=== PATIENT | male | born 1995 | race Caucasian/White ===

== ENCOUNTER 2016-12-14 21:24 | Emergency (ER) | payer OTHER ==
--- NOTE | 2016-12-15 00:55 | ED NURSING NOTES ---
Clinical Report - [facility] [address] [place] [address] 12/14/2016 21:29 [id number] Triage time 22:25. Acuity: LEVEL 4. Chief Complaint: INJURY TO RIGHT HAND. INJURY TO THE RIGHT THUMB (lac). --22:28 Da Tolentino R.N. 22:24 12/14/16. BP: 138/90. HR: 91. RR: 15. O2 saturation: 98%. Temp: 98.1 F. Pain level now 12/05. --22:28 Da Tolentino R.N. Weight: 70.3 kg stated. Height/Length: 64 inches Per Patient. BMI: 26.6. --22:27 Da Tolentino R.N. Medications None. --22:27 Da Tolentino R.N. Medication/allergy information source: the patient. --22:28 Da Tolentino R.N. Allergies No Known Drug Allergy. --22:27 Da Tolentino R.N. History Arrived by private vehicle. Historian: patient. Unaccompanied. Primary physician (Dr Quintana). This occurred just prior to arrival. He sustained a laceration (broken plate). ( Pt came in with a lac on the right thumb on a broken plate. Dressing is on the right thumb with some blood noted on the dressing, but not actively bleeding. pt has full sensation in the right thumb. Warm to the touch.). 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 PAST MEDICAL HX: Tetanus status: unknown. SOCIAL HX: Never smoker. No alcohol use or drug use. --22:28 Da Tolentino R.N. PROBLEMS: no known problems. ADDITIONAL SURGERIES: no known surgeries. Interventions ID band on patient. To treatment room. --22:28 Da Tolentino R.N. PHYSICAL ASSESSMENT GENERAL / NEURO / PSYCH: Oriented X 4. Alert. Appears in no acute distress. EXTREMITIES: Capillary refill is less than 2 seconds in the extremities. Extremity pulses are within normal limits. Extremities exhibit normal ROM. Neuro-vascular status intact to the extremity. Right thumb: superficial 1.0 cm laceration with controlled bleeding. Limited movement secondary to pain. SKIN: Skin intact. Skin is warm and dry. --22:29 Da Tolentino R.N. NURSING PROGRESS NOTES Two patient identifiers checked. Call light placed in reach. Side rails up x 1. Bed placed in lowest position. Brakes of bed on. --22:29 Da Tolentino R.N. 23:48 12/14/2016 TDAP IM 0.5 mL given. (Lot#: [id number], expiration date: 07/05/2018, Dinkey Skinner: sanofi pasteur). Given in the right deltoid. Allergies verified and confirmed 5 rights. Vaccine information statement provided to the patient. --23:48 Da Tolentino R.N. ( MD is present in the room. MD is using lido on the right thumb). --23:51 Da Tolentino R.N. 00:58 12/15/2016 Lidocaine Injection Injectable 2 % given. (given locally by ). --00:58 Mary Jane Church R.N. DISPOSITION / DISCHARGE Departure time: 0105. Condition at departure: improved. ( wound was cleaned and dressing placed). No learning barriers present. Discharge instructions provided and reviewed with the patient. Work note given (1 day). Patient verbalized understanding. Written instructions provided in Uzbek. ( 7 days to remove stitches). The patient was discharged by the physician. He was discharged home and unaccompanied at time of discharge. He left the Emergency Department ambulatory and via private vehicle. Patient driving. --01:07 Da Tolentino R.N. 01:06 12/15/16. BP: 129/65. HR: 79. RR: 15. O2 saturation: 100%. Pain level now 0/10. --01:07 Da Tolentino R.N. Locked/Released at 12/15/2016 1:08 by Da Tolentino R.N.
--- NOTE | 2016-12-15 00:55 | ED CLINICAL REPORT ---
Clinical Report - Physicians/Mid Levels [facility] [address] [place] [address] 12/14/2016 21:29 [id number] Time Seen: 23:09; initial patient contact. Arrived- By private vehicle. Historian- patient. HISTORY OF PRESENT ILLNESS Chief Complaint: Injury to the right thumb. The injury happened just prior to arrival. Occurred at work. The patient sustained a laceration from broken glass. Patient is experiencing mild pain. Patient denies injury to the head or neck. REVIEW OF SYSTEMS The patient sustained a laceration. No swelling, tingling, numbness, weakness or foreign body. All systems otherwise negative, except as recorded above. PAST HISTORY Negative. The patient's dominant hand is the right. Last tetanus immunization was more than 5 years ago. Problems: no known problems. Surgeries: No history of previous surgery. Additional Surgeries: no known surgeries. Medications: None. Allergies: No Known Drug Allergy. SOCIAL HISTORY Never smoker. No alcohol use or drug use. ADDITIONAL NOTES The nursing notes have been reviewed with agreement regarding the chief complaint, PMH and patient medications and allergies. PHYSICAL EXAM Vital Signs: 12/14/2016 22:24 BP: 138/90. HR: 91. RR: 15. O2 saturation: 98%. Temp: 98.1 F. Have been reviewed. Hypertensive. Heart rate normal. Respiratory rate normal. Temperature normal. Oxygen saturation normal. Appearance: Alert. Oriented X3. No acute distress. Skin: Single small, deep, linear 1.0 cm laceration. SEE LACERATION PROCEDURE NOTE. Extremities: Right thumb: mild tenderness and deep 1.0 cm laceration. Neurovascular intact distally. No swelling. No limitation in movement. Hand and wrist exam otherwise negative. Extremities otherwise negative. Neuro, Vascular and Tendons: Vascular status intact. Sensation intact. Motor intact. Neuro: Oriented X 3. No motor deficit. No sensory deficit. PROGRESS AND PROCEDURES Digital Nerve Block - Finger: Time: 00:53. Per protocol, time-out completed immediately before the procedure. Digital nerve block performed on the right thumb. Web space, dorsal and volar approach utilized. Landmarks identified. Skin prepped. Total volume of 4 mL 1% Lidocaine infiltrated via two punctures using a 27-gauge needle. Patient cooperative during procedure. No complications encountered. Good anesthesia achieved. Laceration Repair: Time: 00:53. Location: right thumb. Per protocol, time-out completed immediately before the procedure. Length: 1 cm. Complexity: simple (sutured). Wound depth/shape- subcutaneous and linear. Wound is clean. Distal neuro/vascular/tendon status normal. Anesthesia provided by digital block using 1% lidocaine (4 mL). Prepped with Shur-Clens. Wound explored, cleansed and examined to the base in bloodless field extensively with normal saline. Closure of skin: 4-0 Prolene (3 sutures). Post-procedure: he is stable and there are no complications. Bleeding is controlled and neuro-vascular status is intact distal to the wound. Tetanus immunization given. Estimated blood loss: 2 mL. Disposition: Discharged home in good and improved condition. Condition: good. CLINICAL IMPRESSION Single deep laceration to the right thumb.No foreign body present or right fingernail injury. INSTRUCTIONS Protect wound and keep wound area clean. Change dressing twice daily. You may wash wounds briefly, then dry. Apply bacitracin twice daily. Your Current Medications: CONTINUE TAKING THE FOLLOWING MEDICATIONS: None*. Follow-up: Follow up with your doctor in about seven days for suture removal. Call for an appointment. Screening today revealed the patient's blood pressure to be in the hypertensive range. The patient should follow up with a primary care provider for blood pressure management. (Electronically signed by Ascencion Welsh Dr. 12/15/2016 0:57)
--- NOTE | 2016-12-15 00:55 | ED ORDER SUMMARY ---
..... Patient: ZOË LOPEZ OrderSheet [facility] VisitID: [id number] [place] [address] 21y, M Registration Date/Time: 12/14/2016 ORDER SHEET Weight: 70.3 kg (stated) Allergies: No Known Drug Allergy GENERAL ORDERS: Suture Set-up: (00:57 12/15/2016 Wandy Damon) (0:58 EInderbitzen R.N.) MEDICATION ORDERS: Tdap IM 0.5 mL (NOW, per protocol) (23:40 12/14/2016 Wandy Damon) (23:48 TLewis R.N.) Lidocaine Injection 2 % (soln) (NOW) (00:57 12/15/2016 Wandy Damon) (0:58 EInderbitzen R.N.) IV FLUIDS: ORDER SHEET NOTES: [Electronically signed by Ascencion Welsh Dr. (00:57 12/15/2016)] [Electronically signed by Da Tolentino R.N. (01:08 12/15/2016)] [Electronically locked/signed by Da Tolentino R.N. (01:12/15/2016)]
--- NOTE | 2016-12-15 00:55 | ED CLINICAL REPORT ---
Clinical Report - Physicians/Mid Levels [facility] [address] [place] [address] 12/14/2016 21:29 [id number] Time Seen: 23:09; initial patient contact. Arrived- By private vehicle. Historian- patient. HISTORY OF PRESENT ILLNESS Chief Complaint: Injury to the right thumb. The injury happened just prior to arrival. Occurred at work. The patient sustained a laceration from broken glass. Patient is experiencing mild pain. Patient denies injury to the head or neck. REVIEW OF SYSTEMS The patient sustained a laceration. No swelling, tingling, numbness, weakness or foreign body. All systems otherwise negative, except as recorded above. PAST HISTORY Negative. The patient's dominant hand is the right. Last tetanus immunization was more than 5 years ago. Problems: no known problems. Surgeries: No history of previous surgery. Additional Surgeries: no known surgeries. Medications: None. Allergies: No Known Drug Allergy. SOCIAL HISTORY Never smoker. No alcohol use or drug use. ADDITIONAL NOTES The nursing notes have been reviewed with agreement regarding the chief complaint, PMH and patient medications and allergies. PHYSICAL EXAM Vital Signs: 12/14/2016 22:24 BP: 138/90. HR: 91. RR: 15. O2 saturation: 98%. Temp: 98.1 F. Have been reviewed. Hypertensive. Heart rate normal. Respiratory rate normal. Temperature normal. Oxygen saturation normal. Appearance: Alert. Oriented X3. No acute distress. Skin: Single small, deep, linear 1.0 cm laceration. SEE LACERATION PROCEDURE NOTE. Extremities: Right thumb: mild tenderness and deep 1.0 cm laceration. Neurovascular intact distally. No swelling. No limitation in movement. Hand and wrist exam otherwise negative. Extremities otherwise negative. Neuro, Vascular and Tendons: Vascular status intact. Sensation intact. Motor intact. Neuro: Oriented X 3. No motor deficit. No sensory deficit. PROGRESS AND PROCEDURES Digital Nerve Block - Finger: Time: 00:53. Per protocol, time-out completed immediately before the procedure. Digital nerve block performed on the right thumb. Web space, dorsal and volar approach utilized. Landmarks identified. Skin prepped. Total volume of 4 mL 1% Lidocaine infiltrated via two punctures using a 27-gauge needle. Patient cooperative during procedure. No complications encountered. Good anesthesia achieved. Laceration Repair: Time: 00:53. Location: right thumb. Per protocol, time-out completed immediately before the procedure. Length: 1 cm. Complexity: simple (sutured). Wound depth/shape- subcutaneous and linear. Wound is clean. Distal neuro/vascular/tendon status normal. Anesthesia provided by digital block using 1% lidocaine (4 mL). Prepped with Shur-Clens. Wound explored, cleansed and examined to the base in bloodless field extensively with normal saline. Closure of skin: 4-0 Prolene (3 sutures). Post-procedure: he is stable and there are no complications. Bleeding is controlled and neuro-vascular status is intact distal to the wound. Tetanus immunization given. Estimated blood loss: 2 mL. Disposition: Discharged home in good and improved condition. Condition: good. CLINICAL IMPRESSION Single deep laceration to the right thumb.No foreign body present or right fingernail injury. INSTRUCTIONS Protect wound and keep wound area clean. Change dressing twice daily. You may wash wounds briefly, then dry. Apply bacitracin twice daily. Your Current Medications: CONTINUE TAKING THE FOLLOWING MEDICATIONS: None*. Follow-up: Follow up with your doctor in about seven days for suture removal. Call for an appointment. Screening today revealed the patient's blood pressure to be in the hypertensive range. The patient should follow up with a primary care provider for blood pressure management. (Electronically signed by Ascencion Welsh Dr. 12/15/2016 0:57)
--- NOTE | 2016-12-15 00:55 | ED ORDER SUMMARY ---
..... Patient: ZOË LOPEZ OrderSheet [facility] VisitID: [id number] [place] [address] 21y, M Registration Date/Time: 12/14/2016 ORDER SHEET Weight: 70.3 kg (stated) Allergies: No Known Drug Allergy GENERAL ORDERS: Suture Set-up: (00:57 12/15/2016 Wandy Damon) (0:58 EInderbitzen R.N.) MEDICATION ORDERS: Tdap IM 0.5 mL (NOW, per protocol) (23:40 12/14/2016 Wandy Damon) (23:48 TLewis R.N.) Lidocaine Injection 2 % (soln) (NOW) (00:57 12/15/2016 Wandy Damon) (0:58 EInderbitzen R.N.) IV FLUIDS: ORDER SHEET NOTES: [Electronically signed by Ascencion Welsh Dr. (00:57 12/15/2016)] [Electronically signed by Da Tolentino R.N. (01:08 12/15/2016)] [Electronically locked/signed by Da Tolentino R.N. (01:12/15/2016)]
--- NOTE | 2016-12-15 00:55 | ED NURSING NOTES ---
Clinical Report - Nurses [facility] [address] [place] [address] 12/14/2016 21:29 [id number] Triage time 22:25. Acuity: LEVEL 4. Chief Complaint: INJURY TO RIGHT HAND. INJURY TO THE RIGHT THUMB (lac). --22:28 Da Tolentino R.N. 22:24 12/14/16. BP: 138/90. HR: 91. RR: 15. O2 saturation: 98%. Temp: 98.1 F. Pain level now 12/05. --22:28 Da Tolentino R.N. Weight: 70.3 kg stated. Height/Length: 64 inches Per Patient. BMI: 26.6. --22:27 Da Tolentino R.N. Medications None. --22:27 Da Tolentino R.N. Medication/allergy information source: the patient. --22:28 Da Tolentino R.N. Allergies No Known Drug Allergy. --22:27 Da Tolentino R.N. History Arrived by private vehicle. Historian: patient. Unaccompanied. Primary physician (Dr Quintana). This occurred just prior to arrival. He sustained a laceration (broken plate). ( Pt came in with a lac on the right thumb on a broken plate. Dressing is on the right thumb with some blood noted on the dressing, but not actively bleeding. pt has full sensation in the right thumb. Warm to the touch.). Treatment [employer]ETING: (dressing over the lac). PAST MEDICAL HX: Tetanus status: unknown. SOCIAL HX: Never smoker. No alcohol use or drug use. --22:28 Da Tolentino R.N. PROBLEMS: no known problems. ADDITIONAL SURGERIES: no known surgeries. Interventions ID band on patient. To treatment room. --22:28 Da Tolentino R.N. PHYSICAL ASSESSMENT GENERAL / NEURO / PSYCH: Oriented X 4. Alert. Appears in no acute distress. EXTREMITIES: Capillary refill is less than 2 seconds in the extremities. Extremity pulses are within normal limits. Extremities exhibit normal ROM. Neuro-vascular status intact to the extremity. Right thumb: superficial 1.0 cm laceration with controlled bleeding. Limited movement secondary to pain. SKIN: Skin intact. Skin is warm and dry. --22:29 Da Tolentino R.N. NURSING PROGRESS NOTES Two patient identifiers checked. Call light placed in reach. Side rails up x 1. Bed placed in lowest position. Brakes of bed on. --22:29 Da Tolentino R.N. 23:48 12/14/2016 TDAP IM 0.5 mL given. (Lot#: [id number], expiration date: 07/05/2018, Delivery Specialist: sanofi pasteur). Given in the right deltoid. Allergies verified and confirmed 5 rights. Vaccine information statement provided to the patient. --23:48 Da Tolentino R.N. ( MD is present in the room. MD is using lido on the right thumb). --23:51 Da Tolentino R.N. 00:58 12/15/2016 Lidocaine Injection Injectable 2 % given. (given locally by ). --00:58 Mary Jane Church R.N. DISPOSITION / DISCHARGE Departure time: 0105. Condition at departure: improved. ( wound was cleaned and dressing placed). No learning barriers present. Discharge instructions provided and reviewed with the patient. Work note given (1 day). Patient verbalized understanding. Written instructions provided in Slovenian. ( 7 days to remove stitches). The patient was discharged by the physician. He was discharged home and unaccompanied at time of discharge. He left the Emergency Department ambulatory and via private vehicle. Patient driving. --01:07 Da Tolentino R.N. 01:06 12/15/16. BP: 129/65. HR: 79. RR: 15. O2 saturation: 100%. Pain level now 0/10. --01:07 Da Tolentino R.N. Locked/Released at 12/15/2016 1:08 by Da Tolentino R.N.
--- NOTE | 2016-12-15 01:08 | ED MAR SUMMARY ---
..... Medication Administration Record [facility] [address] [place] [address] Patient: ZOË LOPEZ Visit ID: [id number] 21y, M Weight: 70.3 kg Height/Length: 64 in BMI: 26.6 ALLERGIES: No Known Drug Allergy Given 23:48 12/14/2016 Da Tolentino RThanh Medication Administered: TDAP [IM], Dose: 0.5 mL IM. Medication Ordered: Tdap IM 0.5 mL (NOW, per protocol). Given 00:58 12/15/2016 Mary Jane Church R.N. Medication Administered: LIDOCAINE [INJECTION], Dose: 2 % Injectable Injection. Medication Ordered: Lidocaine Injection 2 % (soln) (NOW).
--- NOTE | 2016-12-15 01:08 | ED DISCHARGE INSTRUCTIONS ---
Patient: ZOË LOPEZ General Instructions [facility] VisitID: [id number] [place] [address] 21y, M Registration Date/Time: 12/14/2016 Single deep laceration to the right thumb.No foreign body present or right fingernail injury. INSTRUCTIONS Protect wound and keep wound area clean. Change dressing twice daily. You may wash wounds briefly, then dry. Apply bacitracin twice daily. Your Current Medications: CONTINUE TAKING THE FOLLOWING MEDICATIONS: None*. Follow-up: Follow up with your doctor in about seven days for suture removal. Call for an appointment. Screening today revealed the patient's blood pressure to be in the hypertensive range. The patient should follow up with a primary care provider for blood pressure management. ADDITIONAL INFORMATION Laceration (All Closures) Alaceration is a cut through the skin. This will usually require stitches (sutures) or antonina if it is deep. Minor cuts may be treated with a surgical tape closure orskin glue. Home care The following guidelines will help you care for your laceration at home: Extremity, face, or trunk wounds Keep the wound clean and dry. If a bandage was applied and it becomes wet or dirty, replace it. Otherwise, leave it in place for the first 24 hours. If stitches or antonina were used, clean the wound daily. After removing the bandage, wash the area with soap and water. Use a wet cotton swab to loosen and remove any blood or crust that forms. The doctor may prescribe an antibiotic cream or ointment to prevent infection. Do not stop taking this medication until you have finished the prescribed course or the doctor tells you to stop. The doctor may also prescribe medications for pain. Follow the doctors instructions for taking these medications. You may remove the bandage to shower as usual after the first 24 hours, but do not soak the area in water (no swimming) until the stitches or antonina are removed. If surgical tape was used, keep the area clean and dry. If it becomes wet, blot it dry with a towel. If skin glue was used, do not scratch, rub, or pick at the adhesive film. Do not place tape directly over the film. Do not apply liquid, ointment, or creams to the wound while the film is in place. Do not clean the wound with peroxide and do not apply ointments. Avoid activities that cause heavy sweating until the film has fallen off. Protect the wound from prolonged exposure to sunlight or tanning lamps. You may shower as usual but do not soak the wound in water (no baths or swimming). The film will fall off by itself in 510 days. Scalp wounds During the first two days, you may carefully rinse your hair in the shower to remove blood, glass or dirt particles. After two days, you may shower and shampoo your hair normally. Do not soak your scalp in the tub or go swimming until the stitches or antonina have been removed. Talk with your doctor before applying any antibiotic ointment to the wound. Mouth wounds Eat soft foods to reduce pain. If the cut is inside of your mouth, clean by rinsing after each meal and at bedtime with a mixture of equal parts water and hydrogen peroxide (do not swallow!). Or, you can use a cotton swab to directly apply hydrogen peroxide onto the cut. Mouth wounds can be painful when eating. You may use an kzmr-ecy-gmrodav local numbing solution for pain relief. If this is not available, you may use any numbing solution for teething babies. You may apply this directly to the sores with a cotton-tip swab or with your finger. Follow-up care Follow up with your health care provider. Most skin wounds heal within ten days. Mouth and facial wounds heal within five days. However, even with proper treatment, a wound infection may sometimes occur. Therefore, you should check the wound daily for signs of infection listed below. Stitches should be removed from the face within five days; stitches and antonina should be removed from other parts of the body within 714 days. If dissolving stitches were used in the mouth, these will fall out or dissolve without the need for removal. If tape closures were used, remove them yourself if they have not fallen off after 7 days. Ifskin glue was used, the film will fall off by itself in 510 days. When to seek medical care Get prompt medical attention if any of these occur: Bleeding not controlled by direct pressure Signs of infection, including increasing pain in the wound, increasing wound redness or swelling, or pus coming from the wound Fever of 100.4F (38C) or higher, or as directed by your health care provider Stitches or antonina come apart or fall out or surgical tape falls off before 7 days Wound edges re-open Bandage Change If the bandage becomes wet or dirty, replace it. Otherwise, leave it in place for the first 24 hours. Then once a day: After removing the bandage, wash the area with soap and water. Use a wet cotton swab to loosen and remove any blood or crust that forms on the wound. After cleaning, apply a thin layer of antibiotic ointment or cream. Reapply the bandage. You may shower as usual after the first 24 hours. If the bandage is on an arm or leg, cover it with a plastic bag rubber banded at both ends before showering. No tub baths or swimming until the bandage is removed and the wound healed (at least 7 days). You have been given the following additional information: Laceration, All Dressing Change (Electronically signed by Ascencion Welsh Dr. 12/15/2016 0:57)
--- NOTE | 2016-12-15 01:08 | ED MED RECONCILIATION SUMMARY ---
Patient: ZOË LOPEZ Medication Reconciliation Report [facility] VisitID: [id number] [place] [address] 21y, M Registration Date/Time: 12/14/2016 Weight: 70.3 kg Height/Length: 64 in. BMI: 26.6 ALLERGIES: No Known Drug Allergy The patient's Home Medications are listed below: NONE. The source(s) of the original Home Medication information: patient The following Medications were given to the patient in the Emergency Department: TDAP [IM] IM 0.5 mL, administered: 12/14/2016 11:48:00 PM Lidocaine [Injection] Injection 2 %, administered: 12/15/2016 12:58:00 AM The following Medications were prescribed to the patient: None.
--- NOTE | 2016-12-15 01:08 | ED MAR SUMMARY ---
..... Medication Administration Record [facility] [address] [place] [address] Patient: ZOË LOPEZ Visit ID: [id number] 21y, M Weight: 70.3 kg Height/Length: 64 in BMI: 26.6 ALLERGIES: No Known Drug Allergy Given 23:48 12/14/2016 Da Tolentino RThanh Medication Administered: TDAP [IM], Dose: 0.5 mL IM. Medication Ordered: Tdap IM 0.5 mL (NOW, per protocol). Given 00:58 12/15/2016 Mary Jane Church R.N. Medication Administered: LIDOCAINE [INJECTION], Dose: 2 % Injectable Injection. Medication Ordered: Lidocaine Injection 2 % (soln) (NOW).
--- NOTE | 2016-12-15 01:08 | ED MED RECONCILIATION SUMMARY ---
Patient: ZOË LOPEZ Medication Reconciliation Report [facility] VisitID: [id number] [place] [address] 21y, M Registration Date/Time: 12/14/2016 Weight: 70.3 kg Height/Length: 64 in. BMI: 26.6 ALLERGIES: No Known Drug Allergy The patient's Home Medications are listed below: NONE. The source(s) of the original Home Medication information: patient The following Medications were given to the patient in the Emergency Department: TDAP [IM] IM 0.5 mL, administered: 12/14/2016 11:48:00 PM Lidocaine [Injection] Injection 2 %, administered: 12/15/2016 12:58:00 AM The following Medications were prescribed to the patient: None.
== END 2016-12-15 01:05 | disposition home or self-care (01) ==
LOC: ED SRH 21:24
DX: S61.411A Laceration without foreign body of right hand, initial encounter (principal); W25.XXXA Contact with sharp glass, initial encounter; Y93.9 Activity, unspecified; Y92.9 Unspecified place or not applicable; Y99.0 Civilian activity done for income or pay